=== PATIENT | female | born 1995 | race Hispanic/Latino ===

== ENCOUNTER 2022-10-08 23:25 | Emergency (ER) | payer OTHER ==
[~2022-10-08] VITALS: Ht 160 cm; Wt 70.9 kg
[2022-10-09] MEDS ORDERED: KETOROLAC 30 MG/ML 1ML VIAL IV ONE (01:15)
[2022-10-09] MEDS ORDERED: METOCLOPRAMIDE INJ 10MG/2ML VIAL IV ONE (01:15)
[2022-10-09 02:53] VITALS: BP 126/57
[2022-10-09] MEDS ORDERED: IBUP1TAB6 PO (02:56)
== END 2022-10-09 03:08 | disposition home or self-care (01) ==
LOC: M ED 23:25
DX: G44.209 Tension-type headache, unspecified, not intractable (principal)
CPT/HCPCS: 96374; 96375; 99284; J1885; J2765